=== PATIENT | male | born 1985 | race Asian ===

== ENCOUNTER → 2025-05-16 09:08 | Outpatient (CLI) | payer OTHER, SELFPAY ==
--- NOTE | 2025-05-16 09:49 | EKG_ITS ---
[facility] [address], [place] [address] Test Date: 2025-05-16 Pat Name: Braden Baker Department: [facility] Room: Gender: Male [employer] Faculty Member: GARRETT : 1985 Requested By: Order Number: [id number] Reading MD: Carlos Tate MD Measurements Intervals [place] Rate: 110 P: 57 W[place]: 152 QRS: 63 QRSD: 68 T: 78 QT: 324 QTc: 438 Interpretive Statements Sinus tachycardia Electronically Signed On 05-16-2025 14:35:49 PDT by Carlos Tate MD
[2025-05-16 10:53] LABS: Appearance Urine UA CLEAR; Bilirubin Urine UA 1+ (NEGATIVE); Color Urine UA YELLOW; Glucose Urine UA 3+ g/dL (Negative); Ketones Urine UA 3+ (NEGATIVE); Leukocyte Esterase Urine UA NEGATIVE (NEGATIVE); Nitrite Urine UA NEGATIVE (Negative); Occult Blood Urine UA NEGATIVE (Negative); Protein Urine UA TRACE (Negative); Specific Gravity Urine UA 1.025 (1.000-1.035); Urobilinogen Urine UA 0.2 E.U./dL (0.2); pH Urine UA 5.5 (4.5-8.0)
[2025-05-16 10:59] LABS: Ictotest Urine Negative (Negative)
[2025-05-16 11:00] LABS: Culture Indicated Urine Cult Not Indicated
[2025-05-16 11:26] LABS: Alanine Aminotransferase 30 IU/L (<50); Albumin 5.1 g/dL (3.5-5.0); Albumin Globulin Ratio 1.6 (1.0-2.8); Alkaline Phosphatase 74 U/L (38-126); Blood Urea Nitrogen 15 mg/dL (9-20); Calcium 9.2 mg/dL (8.4-10.2); Carbon Dioxide 19 mmol/L (22-32); Chloride 96 mmol/L (98-107); Estimated Glomerular Filt Rate > 60 mL/min (>60); Globulin 3.2 g/dL (1.7-4.1); Glucose 313 mg/dL (70-99); HEMOLYSIS < 15 (0-50); Potassium 4.3 mmol/L (3.4-5.1); Sodium 133 mmol/L (137-145); Total Protein 8.3 g/dL (6.3-8.2)
[2025-05-17 02:36] LABS: HSV 1 IGG Reactive (Non Reactive); HSV 2 IGG Non Reactive (Non Reactive)
== END ==
PROVIDERS: Referring Provider Chiropractor; Visit Provider Chiropractor
DX: B00.9 Herpesviral infection, unspecified (principal); E11.9 Type 2 diabetes mellitus without complications; R00.0 Tachycardia, unspecified; R06.02 Shortness of breath
CPT/HCPCS: 36415; 80053; 81001; 86695; 86696; 93005; 94060

== ENCOUNTER → 2025-05-16 10:17 | Outpatient (CLI) | payer OTHER, SELFPAY ==
--- NOTE | 2025-05-16 10:18 | DI.ECHO.S_ITS ---
[facility] : : [address] : : [place] : : [id number] : : Phone: [phone] Echocardiogram Report + + :Name: DM DILLARD Study Date: 05/16/2025 Height: 70 in : :[facility] ReadingLocation: Weight: 185 lb : : Gender: Male BSA: 2.0 m2 : :: 1985 Age: 39 yrs BP: 124/90 mmHg: :Reason For Study: Tachycardia : :Ordering Physician: MYLES, : :HÉCTOR Performed By: Chucho Hurt : :Referring: HÉCTOR BUENO : + + Interpretation Summary Normal echocardiogram. Details as below. Procedure: A two-dimensional transthoracic echocardiogram with color flow and Doppler was performed. The study quality was technically adequate. There is no prior echocardiogram noted for this patient. The patient was in normal sinus rhythm during the exam. Left Ventricle: The left ventricle is normal in size and wall thickness. Left ventricular systolic function is normal. The ejection fraction is estimated to be 60-65%. There are no focal wall motion abnormalities. Normal diastolic function. Right Ventricle: The right ventricle is normal in size and function. Atria: The left atrial size is normal. Right atrial size is normal. There is no Doppler evidence for an interatrial shunt. Mitral Valve: The mitral valve leaflets appear to open well. There is no mitral valve stenosis. There is no mitral regurgitation noted. Aortic Valve: The aortic valve is trileaflet. The aortic valve opens well. There is no aortic valve stenosis. No aortic regurgitation is present. Tricuspid Valve: The tricuspid valve leaflets are thin and pliable. There is trace tricuspid regurgitation. Pulmonary artery pressures cannot be estimated because of the lack of a measurable TR jet velocity but the IVC suggests a CVP of around 3 mmHg. Pulmonic Valve: The pulmonic valve is not well seen, but is grossly normal. There is a trace or physiologic amount of pulmonic regurgitation. Great Vessels: The aortic root is normal size. The ascending aorta is normal in size. The aortic arch could not be visualized. The pulmonary artery is normal size. The IVC is of normal diameter and collapses greater than 50% with a sniff. This suggests a low right atrial pressure of 3 mm Hg. Pericardium/ Pleura There is no pericardial effusion. MMode/2D Measurements & Calculations LVIDd: 3.4 cm LVOT diam: 2.2 cm LVIDs: 2.2 cm Ao root diam: 3.4 cm FS: 35.1 % asc Aorta Diam: 2.8 cm IVSd: 0.97 cm LVPWd: 0.99 cm LV guallpa. diameter/BSA (cm/m^2): 1.7 LV sys. diameter/BSA (cm/m^2): 1.1 LA A2 area: 12.9 cm2 RA long axis: 4.3 cm LA A4 area: 13.3 cm2 RA area: 9.0 cm2 LA length (vol): 4.9 cm RA vol: 15.9 ml LA vol: 29.8 ml RA : 7.9 ml/m2 LA vol index: 14.8 ml/m2 IVC diam: 1.4 cm RVD1 (basal): 2.1 cm RVD2 (mid): 2.1 cm TAPSE: 2.0 cm Doppler Measurements & Calculations Ao V2 max: 103.6 cm/sec LVOT Max Pedro: 81.3 cm/sec Ao V2 mean: 75.9 cm/sec LV V1 max P.6 mmHg Ao max P.3 mmHg LV V1 VTI: 12.8 cm Ao mean P.6 mmHg KATHY(I,D): 3.0 cm2 Ao V2 VTI: 15.6 cm KATHY(V,D): 2.9 cm2 sev ratio: 0.82 KATHY indexed to BSA (cm^2/m^2): 1.5 MV E max pedro: 59.3 cm/sec PA V2 max: 88.7 cm/sec MV A max pedro: 50.7 cm/sec PA V2 mean: 65.7 cm/sec MV E/A: 1.2 PA mean P.9 mmHg Med Peak E' Pedro: 10.7 cm/sec PA pr(Accel): 45.6 mmHg E/E' med: 5.6 Lat Peak E' Pedro: 13.5 cm/sec E/E' lat: 4.4 E/e' average: 5.0 MV dec time: 0.15 sec SV(LVOT): 47.0 ml Qp/Qs (V,Ao): 1.0/5.7 Qp/Qs (V,LVOT): 1.0/1.8 Reading Physician:03:54 PM
== END ==
PROVIDERS: PCP Chiropractor; Referring Provider Chiropractor; Visit Provider Chiropractor
DX: E11.9 Type 2 diabetes mellitus without complications (principal); R00.0 Tachycardia, unspecified; B00.9 Herpesviral infection, unspecified; R06.02 Shortness of breath
CPT/HCPCS: 36415; 80053; 81001; 86695; 86696; 93005; 93306; 94060